=== PATIENT | female | born 1985 ===

== ENCOUNTER 2024-04-27 05:08 | Day surgery (SDC) | payer OTHER ==
[2024-04-27] MEDS ORDERED: DIPHENHYDRAMINE HCL 50 MG/ML VIAL 1ML IV ONE (08:00)
[2024-04-27] MEDS ORDERED: MEPERIDINE HCL/PF 50 MG/ML VIAL IV ONE (08:00)
[2024-04-27] MEDS ORDERED: MIDAZOLAM HCL/PF 5 MG/ML VIAL IV ONE (08:00)
[2024-04-27] MEDS ORDERED: PROTONIX20 MG PO (08:46)
== END 2024-04-27 10:15 | disposition home or self-care (01) ==
LOC: AMB-ENDOS 05:08
PROVIDERS: ATTEND Surgery
DX: K29.70 Gastritis, unspecified, without bleeding (principal); R10.13 Epigastric pain; E66.01 Morbid (severe) obesity due to excess calories; K44.9 Diaphragmatic hernia without obstruction or gangrene